=== PATIENT | male | born 1970 | race Caucasian/White ===

== ENCOUNTER 2019-05-25 17:45 | Emergency (ER) | payer OTHER ==
[~2019-05-25] VITALS: Ht 180.3 cm; Wt 81.6 kg
[2019-05-26] MEDS ORDERED: CIPRO500 MG PO (07:56)
[2019-05-26] MEDS ORDERED: FLAGYL500MG PO (07:56)
[2019-05-26] MEDS ORDERED: KETO10TA2 PO (07:58)
== END 2019-05-26 08:12 | disposition home or self-care (01) ==
LOC: ER 17:45
DX: L02.31 Cutaneous abscess of buttock (principal); B95.7 Other staphylococcus as the cause of diseases classified elsewhere